=== PATIENT | female | born 1990 | race Caucasian/White ===

== ENCOUNTER 2017-12-29 11:16 | Emergency (ER) | payer OTHER ==
[2017-12-29 11:29] VITALS: BP 105/59; PULSE 72; RESP 18; TEMP 98.3
--- NOTE | 2017-12-29 12:26 | ED ---
ENT HPI - General Chief complaint: ENT Stated complaint: Ear Pain Time Seen by Provider: 12/29/17 11:58 Source: patient, RN notes reviewed Mode of arrival: ambulatory Limitations: no limitations - History of Present Illness Initial comments: This a 27-year-old female with no past medical history presents today for chief complaint of left-sided jaw pain 2 weeks. Patient states that since she was a young girl she only had clicking of her jaw that occur suturing. She thought nothing of this and had never encounter pain due to this. However for the past 2 weeks she noticed pain with chewing or opening her mouth wide, left ear discomfort, and the click that she has always encountered since childhood. She felt that it was something to do with her wisdom teeth that first, so she visited her dentist to 3 days after the onset of symptoms. The dentist said that she had TMJ and gave her anti-inflammatory. Patient stated that she did not want to take 800 milligrams of ibuprofen she thought that this was too high so she did not take medication. A few days later she went to [facility] where she was told again that she had TMJ, and that there is nothing wrong with her left ear. Today patient presents with same symptoms unchanged from above. VS stable. Pt afebrile. Pt denies chest pain, shortness of breath, dyspnea, abdominal or back pain, or visual changes. Remainder ROS (-). - Related Data Previous Rx's Medication Instructions Recorded Ibuprofen [Motrin] 600 mg PO Q6HR PRN #20 tab 09/22/14 Cyclobenzaprine [Flexeril] 10 mg PO HS 4 Days #4 tab 12/29/17 Ibuprofen 600 mg PO Q8H PRN 7 Days #21 tablet 12/29/17 Allergies Allergy/AdvReac Type Severity Reaction Status Date / Time No Known Allergies Allergy Verified 12/29/17 11:29 Review of Systems ROS Statement: Those systems with pertinent positive or pertinent negative responses have been documented in the HPI. ROS Other: All systems not noted in ROS Statement are negative. Constitutional: Denies: fever, chills ENT: Reports: ear pain (left ear pain). Denies: throat pain Respiratory: Denies: cough, dyspnea, wheezes, hemoptysis, stridor Cardiovascular: Denies: chest pain, palpitations Gastrointestinal: Denies: abdominal pain, nausea, vomiting, diarrhea, constipation Genitourinary: Denies: urgency, dysuria Musculoskeletal: Reports: arthralgia Skin: Denies: rash, lesions Neurological: Denies: headache, weakness, numbness, paresthesias, confusion Past Medical History Additional Past Medical History / Comment(s): back pain, migraines History of Any Multi-Drug Resistant Organisms: None Reported Past Surgical History: No Surgical Hx Reported Past Psychological History: No Psychological Hx Reported Smoking Status: Never smoker Past Alcohol Use History: Occasional Past Drug Use History: None Reported General Exam - General Exam Comments Initial Comments: General: The patient is awake and alert, in no distress, and does not appear acutely ill. Eye: Pupils are equal, round and reactive to light, extra-ocular movements are intact. No nystagmus. There is normal conjunctiva bilaterally. No signs of icterus. Tympanic membranes is within normal limits bilaterally. Light and malleus present. No evidence of perforation, effusion, erythema or drainage. External auditory canal exam bilaterally is within normal limits no edema or erythema. No pain to pulling of the external auricle compressing the tragus. Ear exam within normal limits. Ears, nose, mouth and throat: There are moist mucous membranes and no oral lesions. Neck: The neck is supple, there is no tenderness or JVD. Cardiovascular: There is a regular rate and rhythm. No murmur, rub or gallop is appreciated. Respiratory: Lungs are clear to auscultation, respirations are non-labored, breath sounds are equal. No wheezes, stridor, rales, or rhonchi Musculoskeletal: Upon opening closing the mouth there is right-sided deviation of the jaw. Patient is not able to fully open jaw secondary to pain. Patient has tenderness palpation over the set her muscles. There is joint crepitus noticed pain closing as well as an audible click. No obvious signs of bruxism upon inspection of the oral cavity. No tenderness to patient over the temples bilaterally. Neurological: A&O x 3. CN II-XII intact, There are no obvious motor or sensory deficits. Coordination appears grossly intact. Speech is normal. Skin: Skin is warm and dry and no rashes or lesions are noted. Psychiatric: Cooperative, appropriate mood & affect, normal judgment. Limitations: no limitations Course Vital Signs 12/29/17 11:26 Temperature 98.3 F Pulse Rate 72 Respiratory 18 Rate Blood Pressure 105/59 O2 Sat by Pulse 100 Oximetry Medical Decision Making - Medical Decision Making Given physical examination findings I have suspicion for TMJ disorder. There is no concern for giant cell arteritis at this time given patient age, vital signs and history and physical exam findings. No visual changes. Bilateral ear examination within normal limits. Patient afebrile. Patient was given a lower dose of ibuprofen 600 mg every 8 hours for pain mgmt. In addition patient was given Flexeril 10 mg daily at bedtime 4 days for symptomatic treatment. Patient is instructed to follow-up with primary care follow-up. As discussed in detail with Dr. Moore who agrees with impression and plan. Patient was discharged in stable condition. Upon discharge patient was given an information pamphlet on TMJ, she denied any questions at this time. Patient is instructed to return to emergency department for any worsening symptoms including loss of vision. Pt d/c in stable condition. Disposition Clinical Impression: TMJ (temporomandibular joint disorder) Disposition: HOME SELF-CARE Condition: Good Instructions: Temporomandibular Disorder (ED) Additional Instructions: Please use medication as discussed. Please follow-up with family doctor in the next 2 days of symptoms have not improved. Please return to emergency room if the symptoms increase or worsen or for any other concerns. Prescriptions: Cyclobenzaprine [Flexeril] 10 mg PO HS 4 Days #4 tab Ibuprofen 600 mg PO Q8H PRN 7 Days #21 tablet PRN Reason: Pain Is patient prescribed a controlled substance at d/c from ED?: No Referrals: Khai Gu Jr, [Primary Care Provider] - 1-2 days Time of Disposition: 12:26
== END 2017-12-29 12:46 | disposition home or self-care (01) ==
LOC: EC 11:16
DX: M26.602 Left temporomandibular joint disorder, unspecified (principal)
CPT/HCPCS: 99282

== ENCOUNTER → 2018-01-05 | Outpatient (CLI) | payer OTHER ==
[2018-01-05 10:59] LABS: Basophils % (A) 0 %; Eosinophils # (A) 0.2 k/uL (0-0.7); Eosinophils % (A) 3 %; HGB 14.3 gm/dL (11.4-16.0); Lymphocytes # (A) 1.5 k/uL (1.0-4.8); Lymphocytes % (A) 19 %; MCH 29.9 pg (25.0-35.0); MCHC 33.9 g/dL (31.0-37.0); MCV 88.1 fL (80.0-100.0); Mean Platelet Volume 7.4; Monocytes # (A) 0.3 k/uL (0-1.0); Monocytes % (A) 4 %; Neutrophils # (A) 5.8 k/uL (1.3-7.7); Neutrophils % (A) 73 %; Platelet Count 205 k/uL (150-450); RBC 4.77 m/uL (3.80-5.40); RDW 12.5 % (11.5-15.5); WBC 7.9 k/uL (3.8-10.6)
[2018-01-05 11:28] LABS: ALT 24 U/L (9-52); AST 19 U/L (14-36); Albumin 4.6 g/dL (3.5-5.0); Alkaline Phosphatase 51 U/L (38-126); Anion Gap 10 mmol/L; Blood Urea Nitrogen 13 mg/dL (7-17); Calcium 9.8 mg/dL (8.4-10.2); Carbon Dioxide 25 mmol/L (22-30); Chloride 104 mmol/L (98-107); Glucose 88 mg/dL (74-99); Potassium 5.3 mmol/L (3.5-5.1); Sodium 139 mmol/L (137-145); Total Bilirubin 0.6 mg/dL (0.2-1.3); Total Protein 7.5 g/dL (6.3-8.2)
--- NOTE | 2018-01-05 16:46 | US ---
EXAMINATION TYPE: US gallbladder DATE OF EXAM: 01/05/2018 COMPARISON: NONE CLINICAL HISTORY: 27-year-old female R10.10 Abdominal Pain R10.89 Abdominal Pain Gen. Bloating, abdom inal pain TECHNIQUE: Multiple sonographic images of the right upper quadrant are obtained. FINDINGS: EXAM MEASUREMENTS: Liver Length: 13.0 cm Gallbladder Wall: 0.2 cm CBD: 0.4 cm Right Kidney: 9.3 x 3.7 x 3.8 cm Pancreas: visualized portions appear wnl Liver: wnl Gallbladder: no evidence of stones Evidence for sonographic Naqvi's sign: no CBD: wnl Right Kidney: no evidence of hydronephrosis IMPRESSION: Unremarkable sonographic examination of the right upper quadrant.
== END | disposition home or self-care (01) ==
LOC: RADUSWWP 09:59
PROVIDERS: ATTEND Family Medicine
DX: R10.84 Generalized abdominal pain (principal); R11.0 Nausea; R10.10 Upper abdominal pain, unspecified
CPT/HCPCS: 36415; 76705; 80053; 85025

== ENCOUNTER 2020-04-20 10:41 | Emergency (ER) | payer OTHER ==
[2020-04-20 10:48] VITALS: RESP 18; TEMP 98.8
[2020-04-20] MEDS ORDERED: KETOROLAC 15 MG/ML 1 ML VIAL IM STA (11:04)
[2020-04-20] MEDS ORDERED: ORPHENADRINE 30 MG/ML 2 ML VIAL IM STA (11:04)
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
[2020-04-20 12:24] VITALS: BP 105/66; PULSE 66
== END 2020-04-20 12:24 | disposition home or self-care (01) ==
LOC: EC 10:41
DX: M54.2 Cervicalgia (principal); M62.838 Other muscle spasm; E04.1 Nontoxic single thyroid nodule; V43.52XA Car driver injured in collision with other type car in traffic accident, initial encounter; W22.11XA Striking against or struck by driver side automobile airbag, initial encounter; Y92.410 Unspecified street and highway as the place of occurrence of the external cause
CPT/HCPCS: 72125; 99284; 96372 ×2; J2360; J1885

== ENCOUNTER → 2020-05-20 | Outpatient (CLI) | payer OTHER ==
--- NOTE | 2020-05-20 17:36 | US ---
EXAMINATION TYPE: US thyroid st tissue head/neck DATE OF EXAM: 05/20/2020 COMPARISON: Correlation CT 04/20/2020 CLINICAL HISTORY: 29-year-old female E04.1 Thyroid nodule. Possible nodule seen on recent CT. TECHNIQUE: Multiple sonographic images of the thyroid gland are obtained. FINDINGS: GLAND SIZE: Right Lobe: 4.6 x 1.0 x 1.6 cm Overall Parenchyma: homogenous Left Lobe: 4.0 x 0.8 x 1.5 cm Overall Parenchyma: homogeneous Isthmus Thickness: 0.3 cm NODULES RIGHT: # of nodules measured on right: 0 LEFT: # of nodules measured on left: 0 ISTHMUS: # of nodules measured in the isthmus: 0 Bilateral neck scanned, no evidence of lymphadenopathy. [employer] Att[employer] notes: Normal appearing thyroid. IMPRESSION: Normal-sized gland. No discrete nodule. In light of these findings, the questioned CT finding corresp onds to normal contour lobulation of the gland.
== END | disposition home or self-care (01) ==
LOC: RADUSWWP 14:57
PROVIDERS: ATTEND Family Medicine
DX: E04.1 Nontoxic single thyroid nodule (principal)
CPT/HCPCS: 76536

== ENCOUNTER 2020-07-23 19:30 | Emergency (ER) | payer OTHER ==
[2020-07-23 19:45] VITALS: TEMP 98
--- NOTE | 2020-07-23 20:45 | ED ---
General Adult HPI - General Chief complaint: Upper Respiratory Infection Stated complaint: Ear pain,head pain,throat pain Time Seen by Provider: 07/23/20 20:40 Source: patient, RN notes reviewed Mode of arrival: ambulatory Limitations: no limitations - History of Present Illness Initial comments: Patient is a 30-year-old female that presents to emergency department complaining of upper respiratory tract infection type symptoms. She notes that she has a sore throat, cough and some chest congestion for approximately 1 day. She noted that she's Her kids home for several days of she came in the make sure she didn't have Covid. She denied any pain or shortness of breath while sitting up in bed during the exam and interview. She denied any other complaints or issues. She denied any chest pain first breath headache nausea vomiting diarrhea constipation fever fatigue chills. - Related Data Home Medications Medication Instructions Recorded Confirmed Cetirizine HCl [Zyrtec] 10 mg PO DAILY PRN 04/20/20 04/20/20 Vitamin C/Biotin [Hair, Skin and 1 tab PO DAILY 04/20/20 04/20/20 Nails] Previous Rx's Medication Instructions Recorded Cyclobenzaprine [Flexeril] 10 mg PO TID #12 tab 04/20/20 Ibuprofen [Motrin] 600 mg PO Q6HR PRN #20 tab 04/20/20 Allergies Allergy/AdvReac Type Severity Reaction Status Date / Time No Known Allergies Allergy Verified 07/23/20 19:45 Review of Systems ROS Statement: Those systems with pertinent positive or pertinent negative responses have been documented in the HPI. ROS Other: All systems not noted in ROS Statement are negative. Past Medical History Additional Past Medical History / Comment(s): back pain, migraines History of Any Multi-Drug Resistant Organisms: None Reported Past Surgical History: No Surgical Hx Reported Past Psychological History: No Psychological Hx Reported Smoking Status: Never smoker Past Alcohol Use History: Occasional Past Drug Use History: None Reported General Exam Limitations: no limitations General appearance: alert, in no apparent distress Head exam: Present: atraumatic, normocephalic, normal inspection Eye exam: Present: normal appearance, PERRL, EOMI. Absent: scleral icterus, conjunctival injection, periorbital swelling ENT exam: Present: normal exam, mucous membranes moist Neck exam: Present: normal inspection. Absent: tenderness, meningismus, lymphadenopathy Respiratory exam: Present: normal lung sounds bilaterally. Absent: respiratory distress, wheezes, rales, rhonchi, stridor Cardiovascular Exam: Present: regular rate, normal rhythm, normal heart sounds. Absent: systolic murmur, diastolic murmur, rubs, gallop, clicks GI/Abdominal exam: Present: soft, normal bowel sounds. Absent: distended, tenderness, guarding, rebound, rigid Extremities exam: Present: normal inspection, full ROM, normal capillary refill. Absent: tenderness, pedal edema, joint swelling, calf tenderness Neurological exam: Present: alert, oriented X3, CN II-XII intact Psychiatric exam: Present: normal affect, normal mood Skin exam: Present: warm, dry, intact, normal color. Absent: rash Course Vital Signs 07/23/20 19:42 Temperature 98 F Pulse Rate 85 Respiratory 18 Rate Blood Pressure 116/80 O2 Sat by Pulse 96 Oximetry Medical Decision Making - Medical Decision Making 6-year-old female complaining of upper respiratory tract infection symptoms such as cough and chest congestion and sore throat. Chest x-ray, Covid test ordered. Covid test negative, chest x-ray negative. Case discussed with Dr. Gillespie, patient could discharge home. - Lab Data Lab Results 07/23/20 Range/Units 20:04 Coronavirus (PCR) Not Detected (Not Detectd) - Radiology Data Radiology results: report reviewed, image reviewed Chest x-ray: No acute cardiopulmonary process. Disposition Clinical Impression: Acute upper respiratory infection Disposition: HOME SELF-CARE Condition: Stable Instructions (If sedation given, give patient instructions): Upper Respiratory Infection (ED) Additional Instructions: Please return to the Emergency Department if symptoms worsen or any other concerns. Symptomatic control with rest, oral fluid increase, [id number] anti- inflammatories for symptomatic control. Follow-up primary care in 3-5 days. Is patient prescribed a controlled substance at d/c from ED?: No Referrals: Khai Gu Jr, DO [Primary Care Provider] - 1-2 days Time of Disposition: 21:42
--- NOTE | 2020-07-23 21:38 | XR ---
EXAMINATION TYPE: XR chest 2V DATE OF EXAM: 07/23/2020 COMPARISON: 09/22/2014. HISTORY: Cough. TECHNIQUE: Frontal and lateral views of the chest are obtained. FINDINGS: There is no focal air space opacity, pleural effusion, or pneumothorax seen. The cardiac silhouette size is within normal limits. The osseous structures are intact. IMPRESSION: No acute cardiopulmonary process.
[2020-07-23 21:50] VITALS: BP 106/67; PULSE 89; RESP 17
== END 2020-07-23 21:49 | disposition home or self-care (01) ==
LOC: EC 19:30
DX: J06.9 Acute upper respiratory infection, unspecified (principal); H92.09 Otalgia, unspecified ear; G43.909 Migraine, unspecified, not intractable, without status migrainosus; Z20.822 Contact with and (suspected) exposure to COVID-19; Z79.1 Long term (current) use of non-steroidal anti-inflammatories (NSAID)
CPT/HCPCS: 71046; 87635; 99284

== ENCOUNTER → 2020-08-20 | Outpatient (CLI) | payer OTHER ==
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
== END | disposition home or self-care (01) ==
LOC: RADMRIMAIN 10:50
PROVIDERS: ATTEND Family Medicine
DX: M50.221 Other cervical disc displacement at C4-C5 level (principal); V89.2XXA Person injured in unspecified motor-vehicle accident, traffic, initial encounter
CPT/HCPCS: 72141